=== PATIENT | male | born 1955 | race Hispanic/Latino ===

== ENCOUNTER → 2019-12-17 | Outpatient (CLI) | payer OTHER | END | disposition home or self-care (01) | LOC: RAH 10:06 | PROVIDERS: ATTEND Internal Medicine | DX: J98.11 Atelectasis (principal); J44.9 Chronic obstructive pulmonary disease, unspecified; I70.0 Atherosclerosis of aorta; M47.814 Spondylosis without myelopathy or radiculopathy, thoracic region | CPT/HCPCS: 71046 ==